=== PATIENT | female | born 1960 | race Caucasian/White ===

== ENCOUNTER 2024-11-12 09:20 | Emergency (ER) | payer MEDICARE, MEDICAID ==
[~2024-11-12] VITALS: Ht 167.6 cm; Wt 79.0 kg
[~2024-11-12 09:20] MED LIST: AMLODIPINE BESYL5 MG PO; APRESOLINE50 MG PO; ASPIRIN 81 LOW81 MG PO; ATORVASTATIN CA40 MG PO; BAYER ASPIRIN E81 MG PO; COQ-1030 M1 PO; CYMBALTA60 MG PO; MECLIZINE25 MG PO; MELATONIN3 M1 PO; METOPROLOL TART50 MG PO; OLMESARTAN MEDO40 MG PO; PLAVIX75 MG PO
[2024-11-12 09:32] VITALS: BP 139/85
[2024-11-12 09:45] VITALS: BP 142/81
[2024-11-12 10:01] VITALS: BP 174/91
[2024-11-12] MEDS ORDERED: KETOROLAC TROMETHAMINE 30 MG/ML SDV IM ONE (11:00)
[2024-11-12] MEDS ORDERED: PERCOCET1 TA2 PO (11:04)
[2024-11-12 11:08] VITALS: BP 174/91
== END 2024-11-12 11:18 | disposition home or self-care (01) ==
LOC: ED 09:20
DX: S22.32XA Fracture of one rib, left side, initial encounter for closed fracture (principal); S09.90XA Unspecified injury of head, initial encounter; S63.502A Unspecified sprain of left wrist, initial encounter; I10 Essential (primary) hypertension; E78.5 Hyperlipidemia, unspecified; J45.909 Unspecified asthma, uncomplicated; W19.XXXA Unspecified fall, initial encounter; Z86.73 Personal history of transient ischemic attack (TIA), and cerebral infarction without residual deficits; Z95.820 Peripheral vascular angioplasty status with implants and grafts; Z79.01 Long term (current) use of anticoagulants; Z87.891 Personal history of nicotine dependence